=== PATIENT | female | born 1990 | race African-American/Black ===

== ENCOUNTER 2018-03-18 08:06 | Inpatient (IN) | payer MEDICAID ==
[~2018-03-18] VITALS: Ht 152.4 cm; Wt 65.0 kg
[2018-03-25] MEDS: LACTATED RINGERS 1,000 ML IV SCH ×2 (05:45→18:16)
[2018-03-25] MEDS ORDERED: D5%-LACTATED RINGERS 1,000 ML IV SCH (05:52)
[2018-03-25] MEDS ORDERED: OXYTOCIN 30U/ 0.9% NaCL 500ML 500 ML IV ONE (05:52)
[2018-03-25] MEDS ORDERED: LIDOCAINE/PF 1%, 30ML ONE (05:57)
[2018-03-25] MEDS ORDERED: OXYTOCIN 30U/ 0.9% NaCL 500ML 500 ML ONE (05:57)
[2018-03-25] MEDS ORDERED: MISOPROSTOL 200 MCG TABLET ONE (05:57)
[2018-03-25] MEDS ORDERED: NEWBORN KIT ONE (05:57)
[2018-03-25] MEDS ORDERED: SODIUM CITRATE/CITRIC ACID 30 ML UDC PO PRN (06:00)
[2018-03-25] MEDS ORDERED: ONDANSETRON 2MG/ML, 2ML IVPush PRN (06:00)
[2018-03-25] MEDS ORDERED: CALCIUM CARBONATE 500 MG TAB.CHEW PO PRN (06:00)
[2018-03-25] MEDS ORDERED: FENTANYL PF 100 MCG/2ML IV PRN (06:00)
[2018-03-25] MEDS ORDERED: FENTANYL PF 100 MCG/2ML IVPush PRN (06:00)
[2018-03-25] MEDS ORDERED: METOCLOPRAMIDE 5 MG/ML, 2ML IVPush PRN (06:00)
[2018-03-25 06:11] VITALS: BP 104/61
[2018-03-25 06:13] LABS: BASOPHILS # (AUTO) 0.04 x10^3/uL (0-0.1); BASOPHILS % (AUTO) 0 % (0-1); EOSINOPHILS # (AUTO) 0.05 x10^3/uL (0-0.4); EOSINOPHILS % (AUTO) 0 % (1-7); LYMPHOCYTES % (AUTO) 16 % (22-44); MD NO; MEAN CORPUSCULAR HEMOGLOBIN 28.5 pg (27.0-34.8); MEAN CORPUSCULAR HGB CONC 33.6 g/dL (32.4-35.8); MEAN CORPUSCULAR VOLUME 84.7 fL (80-100); MEAN PLATELET VOLUME 8.6 fL (7.4-10.4); MONOCYTES # (AUTO) 0.58 x10^3/uL (0.2-0.8); MONOCYTES % (AUTO) 4 % (2-9); NEUTROPHILS # (AUTO) 11.65 x10^3/uL (1.8-6.8); NEUTROPHILS % (AUTO) 80 % (42-75); PLATELET COUNT 220 x10^3/uL (130-400); RED BLOOD COUNT 4.77 x10^6/uL (3.82-5.3); RED CELL DISTRIBUTION WIDTH 15.9 % (9.6-15.2)
[2018-03-25] MEDS ORDERED: FENTANYL/BUPIV./NS/PF 250 ML EPIDCONT ONE (07:52)
[2018-03-25] MEDS ORDERED: BUPIVACAINE 0.25% ONE (07:52)
[2018-03-25] MEDS ORDERED: FENTANYL/BUPIV./NS/PF 250 ML EPIDCONT SCH (08:39)
[2018-03-25] MEDS ORDERED: EPHEDRINE 50 MG/ML, 1ML IVPush PRN (09:00)
[2018-03-25] MEDS ORDERED: LACTATED RINGERS 1,000 ML IVBOLUS PRN (09:00)
[2018-03-25 19:34] VITALS: BP 111/71
[2018-03-26] MEDS ORDERED: FENTANYL/BUPIV./NS/PF 250 ML EPIDCONT ONE (00:28)
[2018-03-26] MEDS: LACTATED RINGERS 1,000 ML IV SCH ×5 (06:13→22:22)
[2018-03-26] MEDS ORDERED: METOCLOPRAMIDE 5 MG/ML, 2ML ONE (06:21)
[2018-03-26] MEDS ORDERED: SODIUM CITRATE/CITRIC ACID 30 ML UDC ONE (06:21)
[2018-03-26] MEDS ORDERED: CEFAZOLIN 1,000 MG ONE (06:59)
[2018-03-26] MEDS ORDERED: PROPOFOL 10 MG/ML, 20ML ONE (06:59)
[2018-03-26] MEDS ORDERED: OXYTOCIN 10 UNITS/ML, 1ML ONE (06:59)
[2018-03-26] MEDS ORDERED: EPHEDRINE 50 MG/ML, 1ML ONE (06:59)
[2018-03-26] MEDS ORDERED: DEXAMETHASONE 4 MG/ML, 1ML ONE (06:59)
[2018-03-26] MEDS ORDERED: PHENYLEPHRINE 10 MG/ML ONE (06:59)
[2018-03-26] MEDS ORDERED: KETOROLAC 30 MG/1 ML ONE ×2 (06:59→14:19)
[2018-03-26] MEDS ORDERED: ONDANSETRON 2MG/ML, 2ML ONE (06:59)
[2018-03-26] MEDS ORDERED: SUCCINYLCHOLINE 20 MG/ML, 10ML ONE (06:59)
[2018-03-26] MEDS ORDERED: FENTANYL PF 100 MCG/2ML ONE ×3 (06:59→09:45)
[2018-03-26] MEDS ORDERED: ALBUTEROL/IPRATROPIUM 2.5MG/0.5MG, 3 ML NPPB PRN (08:30)
[2018-03-26] MEDS ORDERED: HYDROcodone/APAP 7.5-325MG/15ML UDC PO PRN (08:30)
[2018-03-26] MEDS ORDERED: EPHEDRINE 50 MG/ML, 1ML IVPush PRN (08:30)
[2018-03-26] MEDS ORDERED: HYDROmorphone 1 MG/ML, 1ML IV PRN (08:30)
[2018-03-26] MEDS ORDERED: FENTANYL PF 100 MCG/2ML IV PRN (08:30)
[2018-03-26] MEDS ORDERED: MIDAZOLAM 1 MG/ML, 2ML IV PRN (08:30)
[2018-03-26] MEDS ORDERED: MEPERIDINE/PF 25MG/0.5ML IVPush PRN (08:30)
[2018-03-26] MEDS ORDERED: LABETALOL 5MG/ML, 20ML IV PRN (08:30)
[2018-03-26] MEDS ORDERED: ONDANSETRON 2MG/ML, 2ML IVPush PRN (08:30)
[2018-03-26] MEDS ORDERED: PROMETHAZINE 25 MG/ML, 1ML IV PRN (08:30)
[2018-03-26] MEDS ORDERED: OXYcodone 5 MG/5 ML ORAL.SOL UDC PO PRN (08:30)
[2018-03-26] MEDS ORDERED: hydrALAzine 20 MG/ML, 1ML IV PRN (08:30)
[2018-03-26] MEDS ORDERED: METHYLERGONOVINE 0.2 MG/ML IM PRN (09:00)
[2018-03-26] MEDS ORDERED: CARBOPROST TROMETHAMINE 250 MCG/ML, 1ML IM PRN (09:00)
[2018-03-26] MEDS: PRENATAL VIT/IRON/FA 1 EACH TABLET PO SCH ×2 (09:00→12:40)
[2018-03-26] MEDS ORDERED: MISOPROSTOL 200 MCG TABLET PR PRN (09:00)
[2018-03-26] MEDS ORDERED: IBUPROFEN 800 MG TABLET PO PRN (09:00)
[2018-03-26] MEDS ORDERED: BISACODYL 10 MG SUPP PR PRN (09:00)
[2018-03-26] MEDS ORDERED: ONDANSETRON 2MG/ML, 2ML IV PRN (09:00)
[2018-03-26] MEDS ORDERED: OXYcodone IR 5MG TABLET PO PRN (09:00)
[2018-03-26] MEDS ORDERED: GLYCERIN ADULT SUPP PR PRN (09:00)
[2018-03-26] MEDS ORDERED: METOCLOPRAMIDE 5 MG/ML, 2ML IV PRN (09:00)
[2018-03-26] MEDS ORDERED: OXYcodone 5 MG/5 ML ORAL.SOL UDC ONE (09:45)
[2018-03-26] MEDS: OXYTOCIN 30U/ 0.9% NaCL 500ML 500 ML IV SCH ×2 (09:52→18:31)
[2018-03-26 10:15] VITALS: BP 111/76
[2018-03-26] MEDS: OXYcodone/APAP 5/325MG TABLET PO PRN ×3 (12:40→17:52)
[2018-03-26] MEDS: DOCUSATE 100 MG CAPSULE PO PRN ×2 (12:40→22:10)
[2018-03-26 14:00] VITALS: BP 115/76
[2018-03-26] MEDS: KETOROLAC 30 MG/1 ML IVPush SCH ×2 (14:30→20:28)
[2018-03-26] MEDS ORDERED: KETOROLAC 30 MG/1 ML IVPush SCH (14:30)
[2018-03-26 20:00] VITALS: BP 96/57
[2018-03-26] MEDS ORDERED: SIMETHICONE 80 MG CHEW TAB ONE (22:05)
[2018-03-26] MEDS ORDERED: SIMETHICONE 80 MG CHEW TAB PO PRN (23:30)
[2018-03-27] VITALS: BP 105/68
[2018-03-27] MEDS: OXYcodone/APAP 5/325MG TABLET PO PRN ×2 (00:50→17:58)
[2018-03-27] MEDS: KETOROLAC 30 MG/1 ML IVPush SCH ×2 (02:54→08:30)
[2018-03-27 07:33] LABS: BASOPHILS % (AUTO) 1 % (0-1); EOSINOPHILS # (AUTO) 0.14 x10^3/uL (0-0.4); EOSINOPHILS % (AUTO) 1 % (1-7); LYMPHOCYTES # (AUTO) 2.78 x10^3/uL (1-3.4); LYMPHOCYTES % (AUTO) 17 % (22-44); MD NO; MEAN CORPUSCULAR HEMOGLOBIN 27.9 pg (27.0-34.8); MEAN CORPUSCULAR HGB CONC 32.8 g/dL (32.4-35.8); MEAN CORPUSCULAR VOLUME 85.2 fL (80-100); MEAN PLATELET VOLUME 8.3 fL (7.4-10.4); MONOCYTES # (AUTO) 0.58 x10^3/uL (0.2-0.8); MONOCYTES % (AUTO) 4 % (2-9); NEUTROPHILS # (AUTO) 12.55 x10^3/uL (1.8-6.8); NEUTROPHILS % (AUTO) 78 % (42-75); PLATELET COUNT 196 x10^3/uL (130-400); RED BLOOD COUNT 3.64 x10^6/uL (3.82-5.3); RED CELL DISTRIBUTION WIDTH 15.8 % (9.6-15.2)
[2018-03-27 08:25] VITALS: BP 110/75
[2018-03-27] MEDS: PRENATAL VIT/IRON/FA 1 EACH TABLET PO SCH (08:38)
[2018-03-27] MEDS: DOCUSATE 100 MG CAPSULE PO PRN (08:38)
[2018-03-27] MEDS: IBUPROFEN 600 MG TABLET PO PRN ×2 (09:19→17:58)
[2018-03-27 19:30] VITALS: BP 104/71
[2018-03-28] MEDS: IBUPROFEN 600 MG TABLET PO PRN ×2 (00:35→07:51)
[2018-03-28] MEDS: DOCUSATE 100 MG CAPSULE PO PRN ×2 (00:35→07:51)
[2018-03-28] MEDS: OXYcodone/APAP 5/325MG TABLET PO PRN ×2 (00:35→07:51)
[2018-03-28] MEDS: PRENATAL VIT/IRON/FA 1 EACH TABLET PO SCH (07:51)
[2018-03-28 08:08] VITALS: BP 110/69
[2018-03-28] MEDS ORDERED: OXYC-302 PO (11:57)
[2018-03-28] MEDS ORDERED: IBUP-1222 PO (11:57)
== END 2018-03-28 15:00 | disposition home or self-care (01) | DRG 766 ==
LOC: LDIP 03-25 05:37 → 2NW 03-26 10:14
PROVIDERS: ADMIT Student in an Organized Health Care Education/Training Program; ATTEND Student in an Organized Health Care Education/Training Program
PROC: 10D00Z1 Extraction of Products of Conception, Low, Open Approach (ICD-10-PCS; principal; 2018-03-25)
DX: O48.0 Post-term pregnancy (principal); O34.211 Maternal care for low transverse scar from previous cesarean delivery; O62.2 Other uterine inertia; Z3A.41 41 weeks gestation of pregnancy; Z37.0 Single live birth
CPT/HCPCS: 36415; J7121; 82803; 85025; 86850; 86900; J0690; J1100; J1885; J2405; J2704; J3010; J0330; J2370; J2590; J2765; J7120

== ENCOUNTER 2020-08-14 05:15 | Emergency (ER) | payer MEDICAID, OTHER ==
[~2020-08-14] VITALS: Ht 152.4 cm; Wt 65.0 kg
[~2020-08-14 05:15] MED LIST: IBUP-1222 PO; OXYC-302 PO
[2020-08-14] MEDS ORDERED: ONDANSETRON 2MG/ML, 2ML ONE (05:20)
[2020-08-14] MEDS ORDERED: MORPHINE SULFATE 4 MG/ML, 1ML ONE (05:20)
[2020-08-14] MEDS ORDERED: ONDANSETRON 2MG/ML, 2ML IVPush ONE (05:30)
[2020-08-14] MEDS ORDERED: MORPHINE SULFATE 4 MG/ML, 1ML IVPush PRN (05:30)
[2020-08-14] MEDS ORDERED: METHYLERGONOVINE 0.2 MG/ML IM PRN (06:00)
--- NOTE | 2020-08-14 06:15 | NUR ---
Patient BIBA with a miscarrage patient believed to be 20 weeks. Due date was 01/03. Patient had delivered at home. Placenta had not been delivered yet on arrival. Patient con't to have active cramping. Patient delivered the placenta with MD at bedside. Patient at bedside. VSS. Call light within reach.
--- NOTE | 2020-08-14 07:48 | NUR ---
PT GIVEN HOSPITAL SOCKS. PT ABLE TO AMBULATE STEADILY IN HALLWAY. PT STILL HAVING VAGINAL BLEEDING. PT STATED THE BLEEDING IS SLOWING DOWN. PT DENIES ANY WINTERS OR DIZZINESS. PT GIVEN WATER FOR PO CHALLANGE. AT BEDSIDE.
[2020-08-14 08:27] VITALS: BP 97/59
== END 2020-08-14 08:28 | disposition home or self-care (01) ==
LOC: ED 06:18
DX: O03.9 Complete or unspecified spontaneous abortion without complication (principal); R00.0 Tachycardia, unspecified; Z3A.20 20 weeks gestation of pregnancy
CPT/HCPCS: 88305; 96372; 96374; 96375; 99284; J2210; J2270; J2405